=== PATIENT | male | born 1995 | race Caucasian/White ===

== ENCOUNTER → 2021-12-01 12:52 | Outpatient (BNVA) | payer SELFPAY | PROVIDERS: Visit Provider Emergency Medicine | DX: Z20.822 Contact with and (suspected) exposure to COVID-19 (principal) | CPT/HCPCS: 87635 ==

== ENCOUNTER → 2023-04-10 11:58 | Outpatient (BNVA) | payer MEDICAID, SELFPAY | PROVIDERS: Visit Provider Emergency Medicine | DX: M25.512 Pain in left shoulder (principal) | CPT/HCPCS: 73030 ==

== ENCOUNTER 2023-05-06 13:09 | Outpatient (CLI) | payer MEDICAID, SELFPAY ==
--- NOTE | 2023-05-06 13:00 | IR_ITS ---
WS: [id number] LEFT SHOULDER ARTHROGRAM UNDER FLUOROSCOPY. PRIOR TO MRI EVALUATION. HISTORY: shoulder pain COMPARISON: None available. FLUOROSCOPY TIME: 1min [id number] # of spot films: 2 Procedure, risks and complications were explained to the patient. Consent has been obtained. Under fluoroscopic guidance the skin is marked over the medial superior third of the humeral head, cl eansed with ChloraPrep and anesthetized with lidocaine. 22-gauge spinal needle is inserted to the cor sagar of the humeral head. Test injection with Omnipaque reveals the needle is appropriately positioned in the joint. A mixture of 10 cc sterile saline, 5 cc Omnipaque and 0.1 mmol gadolinium are injected under fluoroscopic guidance. Patient tolerated the joint distention well. No complications. IR/IR arthrogram shoulderLT [id number] IMPRESSION: Uncomplicated LEFT shoulder joint injection prior to MRI.
--- NOTE | 2023-05-06 13:20 | MR_ITS ---
WS: [id number] MRI LEFT SHOULDER ARTHROGRAM HISTORY: shoulder pain, lifting injury. COMPARISON: Shoulder radiograph 04/10/2023. TECHNIQUE: Pre and postcontrast imaging. Gadolinium mixture was injected under fluoroscopy. Coronal T 1 fat sat, sagittal T2 fat sat, coronal T2 fat sat, axial proton density, axial T1 nonfat saturation and ABER sagittal T1 fat sat views are submitted. Precontrast imaging: Very minimal AC joint arthritis. No significant encroachment upon the supraspina tus. No subacromial impingement. No rotator cuff muscle atrophy or edema. Mild thickening and tendino chantelle in the subscapularis tendon. No joint effusion. No marrow edema. There is a small amount of inc reased T2 signal extending through the base of the anterior labrum. Increased T2 signal extends minim ally into the superior labrum but does not extend completely through the labrum. Postcontrast imaging: No rotator cuff tear identified. There is no contrast extending extraarticular. There is contrast extending into the base of the anterior and superior labrum there is slight elevat ion of the labrum especially involving the anterior labrum. MR/MR shoulder LT wo/w con [id number] IMPRESSION: 1. No rotator cuff tear. 2. Mild tendinopathy distal subscapularis tendon. 3. Labral tear involving the anterior superior labrum. Most significant extent of the tear is through the anterior labrum. 4. Very minimal AC joint arthritis.
== END 2023-05-06 13:10 | disposition home or self-care (01) ==
PROVIDERS: Visit Provider Nurse Practitioner Family
DX: S43.432A Superior glenoid labrum lesion of left shoulder, initial encounter (principal); S46.002A Unspecified injury of muscle(s) and tendon(s) of the rotator cuff of left shoulder, initial encounter; X50.9XXA Other and unspecified overexertion or strenuous movements or postures, initial encounter; M19.012 Primary osteoarthritis, left shoulder
CPT/HCPCS: 23350; 73223; 77002; A9577; Q9966

== ENCOUNTER → 2023-07-19 06:52 | Outpatient (BNVA) | payer MEDICAID, SELFPAY | PROVIDERS: Visit Provider Student in an Organized Health Care Education/Training Program | DX: M25.512 Pain in left shoulder (principal); G89.29 Other chronic pain; M24.412 Recurrent dislocation, left shoulder | CPT/HCPCS: 77002 ==

== ENCOUNTER → 2023-09-18 10:06 | Outpatient (BNVA) | payer MEDICAID, SELFPAY | PROVIDERS: PCP Nurse Practitioner; Visit Provider Nurse Practitioner Family | DX: S69.91XA Unspecified injury of right wrist, hand and finger(s), initial encounter (principal); W22.09XA Striking against other stationary object, initial encounter; I10 Essential (primary) hypertension | CPT/HCPCS: 73130 ==